=== PATIENT | male | born 1975 | race Caucasian/White ===

== ENCOUNTER 2021-10-05 12:36 | Emergency (ER) | payer OTHER ==
[~2021-10-05] VITALS: Ht 177.8 cm; Wt 88.5 kg
[2021-10-05] MEDS ORDERED: diphenhydrAMINE 50 MG/1 ML VIAL IM ONE (13:00)
[2021-10-05] MEDS ORDERED: METOCLOPRAMIDE HCL 10 MG/2 ML VIAL IM ONE (13:00)
--- NOTE | 2021-10-05 13:12 | NUR ---
PT IS IN ROOM #2A. DR GURROLA EVALUATED THE PT.
[2021-10-05] MEDS ORDERED: diphenhydrAMINE 50 MG/1 ML VIAL ONE (13:14)
[2021-10-05] MEDS ORDERED: METOCLOPRAMIDE HCL 10 MG/2 ML VIAL ONE (13:14)
[2021-10-05] MEDS ORDERED: IV NORMAL SALINE 1000 ML BAG IV ONE (13:15)
[2021-10-05 14:36] LABS: HEMATOCRIT 45.8 % (36.7-47.1); MEAN CORPUSCULAR HEMOGLOBIN 30.9 uug (23.8-33.4); MEAN CORPUSCULAR VOLUME 87.1 fL (73.0-96.2); PLATELET COUNT (AUTO) 252 K/uL (152-348)
[2021-10-05 14:46] LABS: CREATININE 0.9 mg/dL (0.6-1.3); POTASSIUM 4.2 mmol/L (3.5-5.1)
[2021-10-05 14:51] LABS: ETHANOL < 3 MG/DL (0-0)
[2021-10-05 14:52] LABS: BILIRUBIN,DIRECT 0.1 mg/dL (0.0-0.2); BILIRUBIN,TOTAL 0.3 mg/dL (0.2-1.0)
[2021-10-05 14:55] LABS: *BILIRUBIN,URIN NEGATIVE (NEGATIVE); *BLOOD, URINE NEGATIVE (NEGATIVE); *CLARITY,URINE CLEAR (CLEAR); *COLOR,URINE YELLOW (YELLOW); *KETONES,URINE NEGATIVE (NEGATIVE); *UROBILINOGEN,URINE 0.2 E.U./dl (NORMAL); LEUKOCYTE ESTERASE ,URINE NEGATIVE (NEGATIVE); NITRITE, URINE NEGATIVE (NEGATIVE); UGLUCOSE NEGATIVE (NEGATIVE)
[2021-10-05 15:05] LABS: *AMPHETAMINE, URINE NEGATIVE (NEGATIVE); *CANNABINOID, URINE NEGATIVE (NEGATIVE); *COCCAINE, URINE NEGATIVE (NEGATIVE); *OPIATE, URINE NEGATIVE (NEGATIVE); *PHENCYCLIDINE SCREEN,URINE NEGATIVE (NEGATIVE)
[2021-10-05] MEDS ORDERED: KETOROLAC TROMETHAMINE 30 MG INJ IVP ONE (15:45)
[2021-10-05] MEDS ORDERED: KETOROLAC TROMETHAMINE 30 MG INJ ONE (15:49)
[2021-10-05] MEDS ORDERED: HYDROCODONE/APAP 10-325 MG TABLET PO ONE (16:30)
[2021-10-05] MEDS ORDERED: HYDROCODONE/APAP 10-325 MG TABLET ONE (17:00)
[2021-10-05] MEDS ORDERED: METO-295 PO (17:06)
--- NOTE | 2021-10-05 17:18 | NUR ---
PT WAS D/C'd TO HOME AFTER DR GURROLA RE-EVALUATION. D/C INSTRUCTIONS GIVEN TO THE PT BY DR GURROLA.
[2021-10-05 17:25] VITALS: BP 132/70
== END 2021-10-05 17:26 | disposition home or self-care (01) ==
LOC: ER 12:36
DX: G43.909 Migraine, unspecified, not intractable, without status migrainosus (principal); I10 Essential (primary) hypertension; I25.2 Old myocardial infarction
CPT/HCPCS: 36415; 70450; 80048; 80076; 80307; 80320; 81003; 85025; 96361; 96372; 96374; 99284; J1200; J1885; J2765; A4663; G0480; J7030

== ENCOUNTER 2021-10-11 16:31 | Emergency (ER) | payer OTHER ==
[~2021-10-11] VITALS: Ht 177.8 cm; Wt 88.5 kg
[~2021-10-11 16:31] MED LIST: METO-295 PO
--- NOTE | 2021-10-11 17:03 | NUR ---
Note undone in [facility] - 10/11/21 at 1707 by SIMONE C/O migraine KOVACS with photosensitivity and phonosensitivity began this morning at 0900. Pt states taking a BP med which has caused migraines in the past. States 10 pain, in NAD at this time. Seen by provider. Addendum: 10/11/21 at 1706 by SIMONE Amendment undone in [facility] - 10/11/21 at 1707 by [email or web address] C/O migraine KOVACS with photosensitivity and vomiting (x4) began this morning at 0900. Pt states taking a BP med which has caused migraines in the past. States 10 pain, in NAD at this time. Seen by provider.
--- NOTE | 2021-10-11 17:08 | NUR ---
C/O migraine KOVACS with photosensitivity and vomiting (x4) began this morning at 0900. Pt states taking a BP med which has caused migraines in the past. States 10/10 pain, in NAD at this time. Seen by provider.
[2021-10-11] MEDS: METOCLOPRAMIDE HCL 10 MG/2 ML VIAL IV ONE (17:24)
[2021-10-11] MEDS: diphenhydrAMINE 50 MG/1 ML VIAL IV ONE (17:24)
[2021-10-11] MEDS ORDERED: diphenhydrAMINE 50 MG/1 ML VIAL ONE (17:28)
[2021-10-11] MEDS ORDERED: KETOROLAC TROMETHAMINE 15 MG INJ ONE (17:28)
[2021-10-11] MEDS ORDERED: METOCLOPRAMIDE HCL 10 MG/2 ML VIAL ONE (17:28)
[2021-10-11] MEDS ORDERED: ACETAMINOPHEN 325 MG TABLET ONE (17:29)
[2021-10-11] MEDS: KETOROLAC TROMETHAMINE 15 MG INJ IVP ONE (17:30)
[2021-10-11] MEDS: ACETAMINOPHEN 650 MG/20.3 ML LIQUID UDC PO ONE (17:30)
--- NOTE | 2021-10-11 17:30 | NUR ---
resting and asleepy no complain at his time
--- NOTE | 2021-10-11 18:29 | NUR ---
Pt states improvement in S/S. P/S 01/03. Denies any adverse event from medication administered. States being aware, will not drive self due to medication. Pt D/C home.
[2021-10-11 18:30] VITALS: BP 133/79
== END 2021-10-11 19:05 | disposition home or self-care (01) ==
LOC: ER 16:33
DX: R51.9 Headache, unspecified (principal); I25.2 Old myocardial infarction; I10 Essential (primary) hypertension; F10.21 Alcohol dependence, in remission
CPT/HCPCS: 96374; 96375; 99284; J1200; J1885; J2765; A4663